=== PATIENT | female | born 1950 | race Caucasian/White ===

== ENCOUNTER 2025-06-16 06:05 | Day surgery (SDC) | payer MEDICARE, OTHER, SELFPAY ==
[2025-06-16 14:06] VITALS: BMI 37.2
[2025-06-16 14:08] VITALS: BP 145/88
== END 2025-06-16 15:10 | disposition home or self-care (01) ==
LOC: SDS 06:05
PROVIDERS: ATTENDING PHYSICIAN Internal Medicine Gastroenterology
DX: R13.10 Dysphagia, unspecified (principal); Z53.9 Procedure and treatment not carried out, unspecified reason

== ENCOUNTER 2025-07-07 06:10 | Day surgery (SDC) | payer MEDICARE, OTHER, SELFPAY ==
[2025-07-07 08:20] VITALS: BMI 37.1
[2025-07-07 08:30] VITALS: BP 131/81
[2025-07-07 08:35] VITALS: BMI 37.1
[2025-07-07 10:24] VITALS: BP 114/75
[2025-07-07 10:30] VITALS: BP 124/90
[2025-07-07 10:45] VITALS: BP 136/80
== END 2025-07-07 11:05 | disposition home or self-care (01) ==
LOC: SDS 06:10
PROVIDERS: ATTENDING PHYSICIAN Internal Medicine Gastroenterology
DX: K20.90 Esophagitis, unspecified without bleeding (principal); K31.7 Polyp of stomach and duodenum; Z13.810 Encounter for screening for upper gastrointestinal disorder; Z87.19 Personal history of other diseases of the digestive system
CPT/HCPCS: 43239; 88305